=== PATIENT | male | born 1970 | race Caucasian/White ===

== ENCOUNTER 2018-11-26 21:36 | Observation (INO) | payer OTHER ==
[2018-11-26] MEDS ORDERED: SODIUM CHLORIDE 0.9% 1000ML 1,000 ML ONE (21:59)
--- NOTE | 2018-11-26 22:18 | RAD ---
EXAM DESCRIPTION: Chest,1 View CLINICAL HISTORY: near syncope COMPARISON: None Available. FINDINGS: Lung volumes are hypoinflated with associated bronchovascular crowding. Cardiac silhouette shows normal heart size. Pulmonary vascularity is within normal limits. Lungs show no confluent infiltrates. Costophrenic angles are sharp. No pneumothorax. Visualized osseous structures show no destructive lesions. Included upper abdomen shows paucity of bowel gas. IMPRESSION: 1. Low lung volumes with associated bronchovascular crowding. Otherwise, no radiographic evidence for acute cardiopulmonary process. 2. Included upper abdomen shows paucity of bowel gas, nonspecific. Electronically signed by: Simone Graf MD 11/26/2018 10:15 PM CDT
--- NOTE | 2018-11-26 22:25 | ED.PDOC ---
History of Present Illness - General Chief Complaint: Syncope/Near Syncope Stated Complaint: change in mental status/ almost passed out Time Seen by Provider: 11/26/18 22:00 Source: patient, family Exam Limitations: no limitations - History of Present Illness Initial Comments: Patient presents with a syncopal even followed by unresponsiveness. [employer], he was at [employer] and felt like he was going to faint. He was helped to his truck by his where he became unresponsive. Upon arrival to the parking lot here, he was vomiting but becoming more alert. He had one episode of light-headedness while laying on the gurney and at that time his sbp dropped to the 70s, but quickly recovered to the 130s. He denies any cardiac history but had a near syncopal event in 2004 for which a chiropractor told him it was because his "ribs were out of line". He also consulted with a tool engineer at that time and there were no chronic problems identified. The patient takes testosterone supplimentation as well as an otc herbal for his thyroid and iron supplementation. He denies abdominal pain or diarrhea. He ate lunch out of town today but is not aware of any similarly sick contacts. No other complaints. Denies history of DM but says that he has been "pre-diabetic" before and since recovered. Timing/Duration: 1/2 hour Severity: moderate Improving Factors: nothing Worsening Factors: nothing Associated Symptoms: other - as in HPI Allergies/Adverse Reactions: Allergies NO KNOWN ALLERGY Allergy (Verified 11/26/18 21:47) Review of Systems - Review of Systems Constitutional: States: see HPI EENTM: States: no symptoms reported Respiratory: States: no symptoms reported Cardiology: States: see HPI Gastrointestinal/Abdominal: States: no symptoms reported Genitourinary: States: no symptoms reported Musculoskeletal: States: no symptoms reported Skin: States: no symptoms reported Neurological: States: see HPI Endocrine: States: see HPI Past Medical History (General) - Patient Medical History Hx Seizures: No Hx Stroke: No Hx Dementia: No Hx Asthma: No Hx of COPD: No Hx Cardiac Disorders: No Hx Congestive Heart Failure: No Hx Pacemaker: No Hx Hypertension: Yes Hx Thyroid Disease: No Hx Diabetes: No Hx Gastroesophageal Reflux: No Hx Renal Disease: No Hx Cancer: No Hx of HIV: No Hx Hepatitis C: No Hx MRSA: No Surgical History: appendectomy - Vaccination History Hx Tetanus, Diphtheria Vaccination: No Hx Influenza Vaccination: No Hx Pneumococcal Vaccination: No - Social History Hx Tobacco Use: No Hx Alcohol Use: Yes - social Family Medical History - Family History Mother Family History: Unknown Physical Exam - Physical Exam General Appearance: Alert Eye Exam: bilateral normal Ears, Nose, Throat: normal ENT inspection Neck: non-tender, full range of motion, supple Respiratory: lungs clear, normal breath sounds Cardiovascular/Chest: normal peripheral pulses, regular rate, rhythm Gastrointestinal/Abdominal: normal bowel sounds, non tender, soft Back Exam: normal inspection, no CVA tenderness Extremity: normal range of motion, non-tender, normal inspection Neurologic: shampoo assistant II-XII nml as tested, no motor/sensory deficits, alert, normal mood/affect, oriented x 3 Skin Exam: normal color Lymphatic: no adenopathy Progress - Progress Progress: 11/26/18 23:26 Laboratory Tests 11/26/18 11/26/18 11/26/18 21:47 21:49 22:01 WBC 12.2 H RBC 5.14 Hgb 14.5 Hct 43.1 MCV 83.8 MCH 28.2 MCHC 33.7 RDW 15.5 H Plt Count 332 MPV 8.0 Absolute Neuts (auto) 8.00 H Absolute Lymphs (auto) 2.70 Absolute Monos (auto) 0.90 H Absolute Eos (auto) 0.50 H Absolute Basos (auto) 0.10 Neutrophils % 65.4 Lymphocytes % 22.2 Monocytes % 7.6 Eosinophils % 4.2 Basophils % 0.6 PT 9.9 INR 0.99 PTT (SP) 22.0 Sodium 137 Potassium 3.2 L Chloride 99 L Carbon Dioxide 28 Anion Gap 13.2 BUN 11 Creatinine 1.16 BUN/Creatinine Ratio 9.5 L POC Glucose 102 Random Glucose 115 H Serum Osmolality 274.1 L Calcium 9.0 Magnesium 1.9 Total Bilirubin 0.4 Direct Bilirubin < 0.1 Indirect Bilirubin 0.3 AST 24 ALT 30 Alkaline Phosphatase 59 Creatine Kinase 117 CK-MB (CK-2) 2.0 CK-MB (CK-2) % Not Reportable Troponin I < 0.02 B-Natriuretic Peptide < 5.0 Serum Total Protein 6.8 Albumin 4.1 TSH Thyroxine (T4) Urine Color Urine Appearance Urine pH Ur Specific [place] Urine Protein Urine Glucose (UA) Urine Ketones Urine Blood Urine Nitrite Urine Bilirubin Urine Urobilinogen Ur Leukocyte Esterase Urine RBC Urine WBC Ur Epithelial Cells Urine Bacteria 11/26/18 11/26/18 22:02 22:59 WBC RBC Hgb Hct MCV MCH MCHC RDW Plt Count MPV Absolute Neuts (auto) Absolute Lymphs (auto) Absolute Monos (auto) Absolute Eos (auto) Absolute Basos (auto) Neutrophils % Lymphocytes % Monocytes % Eosinophils % Basophils % PT INR PTT (SP) Sodium Potassium Chloride Carbon Dioxide Anion Gap BUN Creatinine BUN/Creatinine Ratio POC Glucose Random Glucose Serum Osmolality Calcium Magnesium Total Bilirubin Direct Bilirubin Indirect Bilirubin AST ALT Alkaline Phosphatase Creatine Kinase CK-MB (CK-2) CK-MB (CK-2) % Troponin I B-Natriuretic Peptide Serum Total Protein Albumin TSH 2.55 Thyroxine (T4) 7.90 Urine Color Yellow Urine Appearance Clear Urine pH 6.5 Ur Specific [place] 1.015 Urine Protein Negative Urine Glucose (UA) Negative Urine Ketones Negative Urine Blood Negative Urine Nitrite Negative Urine Bilirubin Negative Urine Urobilinogen 0.2 Ur Leukocyte Esterase Negative Urine RBC 0-1 Urine WBC 0-1 Ur Epithelial Cells [address] head wnl. EKG showed NSR with no ST changes nor T wave inversions. No LBBB. Troponin negative. Dr. Smith was contacted and accepted the patient for observation. The plan was discusses with the patient and family, questions were elicited and answered, the patient voiced understanding and agreement with the plan. Departure - Departure Clinical Impression: Syncope Disposition: Admit Patient Condition: Good Departure Forms: ED Discharge - Pt. Copy, Patient Portal Self Enrollment Referrals: MERLY WANG [Primary Care Provider] - 1-2 Weeks
[2018-11-26] MEDS ORDERED: SODIUM CHLORIDE 0.9% 1000ML 1,000 ML IVS ONE (22:36)
--- NOTE | 2018-11-26 22:48 | CT ---
EXAM: Head CLINICAL INDICATION: 48-year-old male with syncope and unresponsiveness. COMPARISON: None. TECHNIQUE: CT brain without contrast. This exam was performed according to our departmental dose optimization program which includes use of automated exposure control, adjustment of the mA and/or kV according to patient size and/or use of iterative reconstruction technique. FINDINGS: The ventricles, sulci, and cisterns are within normal limits. The miller-white matter differentiation is preserved. There is no mass effect, midline shift, intra- or extra-axial fluid collection/acute hemorrhage. The osseous structures are unremarkable. The paranasal sinuses and mastoid air cells are clear. IMPRESSION: No acute intracranial abnormalities. Electronically signed by: Susanne Gibson MD 11/26/2018 10:45 PM CDT
[2018-11-26] MEDS ORDERED: SODIUM CHLORIDE 0.9% (FLUSH) 10 ML SYG IV PRN (23:45)
[2018-11-26] MEDS ORDERED: IV SET AND CAP CHANGE INJ INJ SCH (23:45)
[2018-11-26] MEDS ORDERED: POTASSIUM CHLORIDE 20mEq 10ML VIAL IVPB ONE (23:51)
[2018-11-26] MEDS ORDERED: PROMETHAZINE HCL INJ 12.5 MG in SODIUM CHLORIDE 0.9% 50ML 50 ML IVPB PRN (23:53)
[2018-11-27] MEDS ORDERED: KCL 20MEQ/WATER FOR INJ 100ML 100 ML IVPB ONE (00:20)
[2018-11-27] MEDS ORDERED: KCL 20MEQ/WATER FOR INJ 100ML 20 MEQ in PREMIX BAG 1 BAG IVPB ONE (00:31)
[2018-11-27 06:18] VITALS: TEMP 98.1
--- NOTE | 2018-11-27 10:17 | HP ---
CHIEF COMPLAINT: Possible syncopal episode. HISTORY OF PRESENT ILLNESS: The patient was brought to the Emergency Room by his and daughter after he had an episode of potential syncope at [facility]. Mom, daughter and the patient endorses he became to feel a little lightheaded as if he couldn't talk right in the middle of the store, and it lasted for about 5 minutes. Once standing in line to check out, the patient felt a little bit worse and proceeded to go to the car to rest until his family was able to meet him. The and daughter endorsed being able to catch up with him about 10 to 15 minutes after he left, and they found him cold and clammy in the truck. They said he was acting slightly strange seemingly like his skin and muscles were hypersensitive to sensation and he kept stating he wanted to lay down and take a nap in the middle of the parking lot. Both the family and the patient endorsed that there may have been a 10-minute time frame that he has not accounted for in which he was not observed. He states he has never had a seizure in the past, but did have a syncopal episode sort of like what happened in the night back in 2004. He did undergo some workup back then regarding cardiac standpoint, in which he probably just had a few premature ventricular contractions. He also endorses having seen a neurologist about that time and obtained an MRI of the brain that was normal. The patient isn't quite sure if the events tonight were very similar to that one, this is just the second time he has had any type of dizziness or near syncope. In the room during my visit, he denied any chest pain or nausea at that time. He did endorse that he had an episode of multiple vomiting in the Emergency Room while on the stretcher, was short lived. PAST MEDICAL HISTORY: 1. Chronic hypertension. 2. History of syncopal episodes. 3. History of pre-diabetes. PAST SURGICAL HISTORY: 1. Appendectomy. CURRENT MEDICATIONS: 1. Testosterone replacement injections. 2. Herbal supplementation for thyroid. SOCIAL HISTORY: Denies any tobacco use, endorses an occasional beer once or twice a week. Denies any illicit drug use. REVIEW OF SYSTEMS: GENERAL: The patient states he feels a lot better than previously, does state his heart rate will go up and down every once in awhile. CARDIAC: Denies chest pain, intermittent palpitations, no peripheral swelling. CHEST: No shortness of breath, no wheezing or coughing. ABDOMEN: Denies abdominal pain, normal bowel movements until today. NEURO: Not quite dizzy anymore, it is resolved, no more confusion, moving all extremities normally. PHYSICAL EXAMINATION: VITAL SIGNS: Heart rate between 72 to 112 [id number]. Temperature 98.7, blood pressure from 91/60 to 168/84, respirations 18. 02 saturation 98% on room air. GENERAL: Patient lying in bed, no acute distress, conversing normally, stating he feels a lot better. CHEST: Lungs are clear to auscultation, no chest wall tenderness, no wheezes or coughing. CARDIOVASCULAR: Slight tachycardia, no murmurs. Normal S1 and S2, no peripheral edema. ABDOMEN: Soft, non-tender, no abdominal masses. NEUROLOGIC: Alert and oriented to person, place and time. Cranial nerves grossly intact. Sensation intact. Moving all extremities normally, 5/5 strength. 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 LABORATORY: WBC 12.9, hemoglobin 14.5, hematocrit 43.1, platelet count 332,000. PT/INR within normal limits. Sodium 137, potassium 3.2, chloride 99, carbon dioxide 28, BUN/creatinine 11/1.16. Total bilirubin is 0.4. AST 24, ALT 30, alkaline phosphatase 59, CK 117, troponin negative x1. BNP negative. TSH 2.55, thyroxine 7.9. Urinalysis is within normal limits. IMAGING: Chest x-ray 11/26/18: Low lung volumes with associated bronchovascular crowding. Upper abdomen shows paucity of bowel gas which is nonspecific. Head CT 11/26/18: Negative for intracranial abnormalities. ASSESSMENT: 1. Possible syncopal episode versus potential seizure activity versus potential TIA, although unlikely given his history. 2. Hypokalemia. 3. Nausea and vomiting. 4. Hypochloremia. 5. Chronic hypertension. 6. History of syncopal episode. 7. On chronic testosterone replacement. 8. History of pre-diabetes. PLAN: Will admit Mr. Kc under observation, will place him on telemetry to monitor his heart rate and wave form while obtaining serial troponin and another EKG in the morning. We have a urine sample, will run a urine drug screen on this, although he does deny using any drugs ever. With his low potassium, we will go ahead and replace with potassium chloride. Will recheck labs in the morning to make sure everything is normalizing his pain appropriate. Will obtain cholesterol panel in order to calculate his cardiac risk over the 10 years. I suspect he will likely need a statin and an aspirin. Both of these are indicated in the setting of potential stroke-like activity. He does have a records technician and a neurologist he has seen in the past, he says he will be able to touch base with them. If symptoms recur or any problems may arise overnight or in the morning, a repeat head CT would likely be warranted. I discussed the plan with the patient and family, they endorsed understanding and are in agreement. #[id number] KVNG
[2018-11-27 10:23] VITALS: BP 144/76; O2SAT 100
--- NOTE | 2018-11-27 20:14 | DS ---
ADMISSION DIAGNOSIS: 1. Possible syncopal episode versus potential seizure activity versus potential TIA, although unlikely given his history. 2. Hypokalemia. 3. Nausea and vomiting. 4. Hypochloremia. 5. Chronic hypertension. 6. History of syncopal episode. 7. On chronic testosterone replacement. 8. History of pre-diabetes. REASON FOR ADMISSION: The patient was brought to the Emergency Room by his and daughter after he had an episode of potential syncope at [facility]. Mom, daughter and the patient endorses he became to feel a little lightheaded as if he couldn't talk right in the middle of the store, and it lasted for about 5 minutes. Once standing in line to check out, the patient felt a little bit worse and proceeded to go to the car to rest until his family was able to meet him. The and daughter endorsed being able to catch up with him about 10 to 15 minutes after he left, and they found him cold and clammy in the truck. They said he was acting slightly strange seemingly like his skin and muscles were hypersensitive to sensation and he kept stating he wanted to lay down and take a nap in the middle of the parking lot. Both the family and the patient endorsed that there may have been a 10-minute time frame that he has not accounted for in which he was not observed. He states he has never had a seizure in the past, but did have a syncopal episode sort of like what happened in the night back in 2004. He did undergo some workup back then regarding cardiac standpoint, in which he probably just had a few premature ventricular contractions. He also endorses having seen a neurologist about that time and obtained an MRI of the brain that was normal. The patient isn't quite sure if the events tonight were very similar to that one, this is just the second time he has had any type of dizziness or near syncope. In the room during my visit, he denied any chest pain or nausea at that time. He did endorse that he had an episode of multiple vomiting in the Emergency Room while on the stretcher, was short lived. HOSPITAL COURSE: Mr. Kc was placed in observation due to a cloudy history of potential syncopal episode versus potential seizure-like activity (although very unlikely), versus potential transient ischemic attack or adjustment disorder. The patient had potassium replaced after multiple episodes of vomiting prior to arrival and while in the E. R. His dizziness apparently improved overnight, he did receive a little bit of fluids in the E. R. He has had no further episodes of dizziness or confusion since admission. We ruled out any major cardiac involvement with negative troponins as well as serial EKGs that are relatively within normal limits with potential atrial enlargement. VITALS: Temperature 98.1, pulse 80, blood pressure 120/87, respiratory rate 18, O2 saturation 95% on room air. LABORATORY AND IMAGING: White blood cell count mildly elevated at 12.0, this is likely just a stress response from last night's events. Hemoglobin and hematocrit within normal limits. Sodium 135, potassium replaced now 4.4, chloride 103, carbon dioxide 27, BUN/creatinine 11/1.01. Hemoglobin A1c was normal at 5.56. Troponin negative times 2. Beta natriuretic peptide negative. Triglycerides 185, cholesterol 203, LDL cholesterol 143, HDL 40. TSH and thyroxine are within normal limits. Toxicology did show cannabinoids on UDS, the patient does take CBD oil on an outpatient basis. Head CT which was negative, completed in the E. R. Chest x-ray showed some lower lung volumes with bronchovascular crowding, which is potentially a chronic finding according to the patient. DISCHARGE DIAGNOSIS: 1. Possible syncopal episode versus potential seizure activity versus potential TIA, although unlikely given his history. 2. Hypokalemia, resolved. 3. Nausea and vomiting. 4. Hypochloremia. 5. Chronic hypertension. 6. History of syncopal episode. 7. On chronic testosterone replacement. 8. History of pre-diabetes. PLAN: Mr. Kc had no further episodes of near syncope or dizziness. His potassium has been replaced and his chemistry panel has normalized. Followup EKG and troponin have also been negative, so no sign of potential cardiac involvement at this point. We did discuss and have questions about his heart rate that does seem to move around on its own with standing or activity. 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 It does seem he may potentially have some underlying stress, or maybe even generalized anxiety disorder. The patient and his also endorse that this could be a likely culprit and agree. His ASCVD risk, kidney risk, is 2.7 given his history and recent lab work. His LDL is elevated, but not quite high enough to warrant statin treatment at this time. Will send him home with precautions regarding syncope and dizziness, with instructions to followup with his primary care physician preferably this next week. He has a cmo and enterologist he has seen in the past, we discussed his potential need to have followup with them to discuss the events that occurred yesterday. The patient and were understanding of the plan and agree. #[id number] MTDD
== END 2018-11-27 10:33 | disposition home or self-care (01) ==
LOC: ER 21:36 → MS 23:42
PROVIDERS: ADMIT Family Medicine; ATTEND Family Medicine
DX: E87.6 Hypokalemia (principal); R11.2 Nausea with vomiting, unspecified; E87.8 Other disorders of electrolyte and fluid balance, not elsewhere classified; I10 Essential (primary) hypertension; R73.03 Prediabetes; R42 Dizziness and giddiness; R41.82 Altered mental status, unspecified; Z79.890 Hormone replacement therapy; Z79.899 Other long term (current) drug therapy; Z90.49 Acquired absence of other specified parts of digestive tract
CPT/HCPCS: 96361; 96366; 96365; J7030; J3480; 80048 ×2; 80307; 82948; 83036; 80061; 36415 ×2; 82550; 82553; 85025 ×2; 85730; 85610; 84484 ×2; 81001; 80076; 84443; 84436; 83880; 71045; 70450; 94760; 99285; 93005 ×2